=== PATIENT | female | born 1995 | race Caucasian/White ===

== ENCOUNTER 2017-03-03 21:26 | Emergency (ER) | payer MEDICAID ==
[~2017-03-03] VITALS: Ht 157.5 cm; Wt 62.0 kg
[2017-03-03 21:27] VITALS: BP 122/76
[2017-03-03] MEDS ORDERED: MICROFIBRILLAR COLLAGEN 1 GM TP ONE (22:20)
== END 2017-03-03 23:23 | disposition home or self-care (01) ==
LOC: ED 22:21
DX: J30.9 Allergic rhinitis, unspecified (principal); J45.909 Unspecified asthma, uncomplicated
CPT/HCPCS: 76380; 99284; J7512

== ENCOUNTER 2018-09-09 08:14 | Emergency (ER) | payer MEDICAID ==
[~2018-09-09] VITALS: Ht 154.9 cm; Wt 61.4 kg
[2018-09-09 08:16] VITALS: BP 101/68
[2018-09-09] MEDS ORDERED: IBUPROFEN 200 MG TABLET ONE (08:57)
[2018-09-09] MEDS ORDERED: IBUPROFEN 600 MG TABLET PO ONE (09:00)
== END 2018-09-09 09:21 | disposition home or self-care (01) ==
LOC: ED 09:09
DX: S93.491A Sprain of other ligament of right ankle, initial encounter (principal); J45.909 Unspecified asthma, uncomplicated; X50.1XXA Overexertion from prolonged static or awkward postures, initial encounter; Y93.89 Activity, other specified; Y92.009 Unspecified place in unspecified non-institutional (private) residence as the place of occurrence of the external cause; Y99.8 Other external cause status
CPT/HCPCS: 99283

== ENCOUNTER 2018-09-11 00:34 | Emergency (ER) | payer MEDICAID ==
[~2018-09-11] VITALS: Ht 154.9 cm; Wt 58.6 kg
[2018-09-11 00:44] VITALS: BP 102/62
== END 2018-09-11 01:33 | disposition home or self-care (01) ==
LOC: ED 01:25
DX: S93.401A Sprain of unspecified ligament of right ankle, initial encounter (principal); W10.9XXA Fall (on) (from) unspecified stairs and steps, initial encounter; Y93.89 Activity, other specified; Y92.89 Other specified places as the place of occurrence of the external cause; Y99.8 Other external cause status
CPT/HCPCS: 99281; 99282

== ENCOUNTER 2020-07-13 20:37 | Emergency (ER) | payer MEDICAID ==
[~2020-07-13] VITALS: Ht 157.5 cm; Wt 70.9 kg
--- NOTE | 2020-07-13 21:11 | NUR ---
Pt comes in with what she originally thought was an allergic reaction. After patient came to the ER and sat in the room, patient now believes it was a panic attack. Patient has a history of panic attacks and stated that where she was this evening there was quite a few people around and normally public places seem to trigger them. Pts VSS, talking in full, complete sentences.
--- NOTE | 2020-07-13 21:20 | NUR ---
Patient given water, ok. Patient tolerating well. Friend at bedside
[2020-07-13 21:32] VITALS: BP 112/70
== END 2020-07-13 21:34 | disposition home or self-care (01) ==
LOC: ED 21:19
DX: F41.1 Generalized anxiety disorder (principal); M79.89 Other specified soft tissue disorders; R42 Dizziness and giddiness; R11.10 Vomiting, unspecified; Z88.9 Allergy status to unspecified drugs, medicaments and biological substances; Z88.1 Allergy status to other antibiotic agents
CPT/HCPCS: 93005; 99283